=== PATIENT | female | born 1985 | race American Indian/Alaskan Native ===

== ENCOUNTER 2019-02-07 10:17 | Inpatient (IN) | payer OTHER ==
[2019-02-07] MEDS ORDERED: ZOFRAN IV PRN (15:24)
[2019-02-07] MEDS ORDERED: BRETHINE SUB-Q PRN (15:24)
[2019-02-07] MEDS ORDERED: BRETHINE IVP PRN (15:24)
[2019-02-07] MEDS ORDERED: PHENERGAN PO PRN (15:24)
[2019-02-07] MEDS ORDERED: NARCAN 0.4 MG/1 ML IV PRN (15:24)
[2019-02-07] MEDS ORDERED: XYLOCAINE 2% INFILTRATI ONE (15:24)
[2019-02-07] MEDS ORDERED: MINERAL OIL PO PRN (15:24)
--- NOTE | 2019-02-07 15:39 | History and Physical Report ---
History of Present Illness Date of examination: 02/07/19 Date of admission: 02/07/19 10:17 Chief complaint: Induction of Labor History of present illness: 33 yo AA Fe , MARCELA 02/26/2019 (LMP), 37w 2d, presents for induction of labor. Pt initiated late care with [facility] [employer] [facility] at 21 weeks 4 days. Co- managed with [facility] d/t Late care, MO (BMI 50.3), CHTN (Labetalol 200mg BID, ASA 81mg QD, BL 24 hr urine protein 485mg. Repeat 01/30/19 400. EKG-wnl). labs: B positive, Rubella non-immune, VDRL non-reactive, HBsAg negative, HIV negative, GC-negative, Chl negative, Trichomoniasis negative, panorama low risk. Past History Past Medical History: no pertinent history Past Surgical History: no surgical history [employer]ER History: trichomonas (07/2017). denies: abnormal PAP smear, chlamydia, gonorrhea, hepatitis B, hepatitis C, herpes, HIV, syphilis Family/Genetic History: diabetes, heart disease, hypertension Social history: no significant social history, single, lives with family, full code. denies: smoking, alcohol abuse, prescription drug abuse, IV drug use - Obstetrical History Expected Date of Delivery: 02/26/19 Actual Gestation: 37 Week(s) 2 Day(s) : 2 Para: 1 Hx # Term Pregnancies: 1 Number of Pregnancies: 0 Spontaneous Abortions: 0 Induced : 0 Number of Living Children: 1 #1 Gender: Female year: Method of Delivery: Vaginal Complications: none Medications and Allergies Allergies Allergy/AdvReac Type Severity Reaction Status Date / Time No Known Allergies Allergy Unverified 11/02/18 17:58 Active Meds: Active Medications Ephedrine Sulfate (Ephedrine Sulfate) 10 mg IV Q2M PRN PRN Reason: Hypotension Oxytocin/Sodium Chloride (Pitocin/Ns 20 Unit/1000ml Drip) 20 units in 1,000 mls @ 125 mls/hr IV DIRECT MELYSSA Mineral Oil (Mineral Oil) 30 ml PO QHS PRN PRN Reason: Constipation Review of Systems Eyes: normal appearance Cardiovascular: no chest pain, no shortness of breath Respiratory: no shortness of breath Breasts: normal Gastrointestinal: no abdominal pain, no nausea, no vomiting, no diarrhea, no constipation Genitourinary: normal appearance, no vaginal bleeding, no vaginal discharge, no leakage of fluid, no genital sores, no contractions Integumentary: no rash, no sores, no lesions - Vital Signs Vital signs: Vital Signs Pulse BP 131 H 131/77 02/07/19 10:49 02/07/19 10:49 Temp Pulse Resp BP Pulse Ox 98.5 F 101 H 18 140/82 94 02/07/19 11:14 02/07/19 15:25 02/07/19 11:14 02/07/19 14:41 02/07/19 15:25 - Physical Exam Breasts: Positive: normal Cardiovascular: Regular rate, Normal S1, Normal S2, No murmurs Lungs: Positive: Clear to auscultation, Normal air movement Abdomen: Positive: normal appearance, soft, normal bowel sounds. Negative: distention Genitourinary (Female): Positive: normal external genitalia, normal perenium Vulva: both: normal Vagina: Positive: normal moisture Uterus: Positive: enlarged (Gravid) Anus/Rectum: Positive: normal perianal skin Extremities: Positive: normal Deep Tendon Reflex Grade: Normal +2 - Obstetrical FHR: category 1 Uterine Contraction Monitor Mode: External Cervical Dilatation: 2 Cervical Effacement Percentage: 70 station: -2 Uterine Contraction Pattern: Absent Uterine Tone Measurement Phase: Resting Uterine Contraction Intensity: Mild Results Result Diagrams: 02/07/19 13:00 02/07/19 13:00 All other labs normal. Assessment and Plan A: IUP at 37w2d Morbid Obesity CHTN; labetalol 200mg BID Category 1 tracing GBS negative P: Admit to L&D; Routine labor orders PIH labs Pitocin Augmentation May have IV p ain med/epidural PRN Anticipate
[2019-02-07 15:49] LABS: Hematocrit 35.2 % (30.3-42.9); Hemoglobin 11.8 gm/dl (10.1-14.3); Mean Corpuscular HGB Conc 34 % (30-34); Mean Corpuscular Volume 82 fl (79-97); Platelet Count 300 K/mm3 (140-440); Red Blood Count 4.31 M/mm3 (3.65-5.03); Red Cell Distribution Width 16.4 % (13.2-15.2)
[2019-02-07 16:00] LABS: Alanine Aminotransferase 41 units/L (7-56); Albumin 3.2 g/dL (3.9-5); BUN/Creatinine Ratio 15; Blood Urea Nitrogen 9 mg/dL (7-17); Calcium 9.7 mg/dL (8.4-10.2); Hemolysis Index 50
[2019-02-07 16:01] LABS: Alanine Aminotransferase 43 units/L (7-56); Uric Acid 4.8 mg/dL (3.5-7.6)
[2019-02-07] MEDS: LACTATED RINGERS 1,000 ML IV SCH (16:12)
[2019-02-07] MEDS ORDERED: PITOCin/NS 30 UNIT/500ML 30 UNITS/500 ML BAG IV SCH (17:00)
[2019-02-07] MEDS: NORMODYNE PO SCH (21:58)
[2019-02-08] MEDS: LACTATED RINGERS 1,000 ML IV SCH (07:51)
--- NOTE | 2019-02-08 10:08 | Progress Note ---
Assessment and Plan - Patient Problems (1) Encounter for induction of labor Current Visit: Yes Status: Acute Plan to address problem: Continue routine L & D orders AROM - clear fluids, tolerated well Continue Pitocin titration as tolerated Pain meds as desired Anticipate (2) Morbid obesity with body mass index (BMI) of 50.0 to 59.9 in adult Current Visit: Yes Status: Acute (3) Chronic hypertension complicating or reason for care during Current Visit: Yes Status: Acute Plan to address problem: Monitor B/P q hr per policy Notify provider for B/P's > 160/110 Subjective - Subjective Date of service: 02/08/19 Principal diagnosis: IOL secondary to CHTN and MO Interval history: See admission H & P Patient reports: vaginal bleeding, movement normal, contractions, no loss of fluid Objective - Vital Signs Vital Signs: Vital Signs - 12hr 02/07/19 02/07/19 02/08/19 23:24 23:26 01:54 Temperature 98.6 F Pulse Rate 75 80 Respiratory Rate Blood Pressure 170/80 156/84 Blood Pressure [Left] O2 Sat by Pulse Oximetry 02/08/19 02/08/19 02/08/19 02:55 03:03 03:23 Temperature 98.6 F Pulse Rate 82 68 Respiratory 20 Rate Blood Pressure 115/56 138/67 Blood Pressure [Left] O2 Sat by Pulse Oximetry 02/08/19 02/08/19 02/08/19 05:19 05:20 05:25 Temperature Pulse Rate 88 73 Respiratory Rate Blood Pressure Blood Pressure [Left] O2 Sat by Pulse 81 L 97 98 Oximetry 02/08/19 02/08/19 02/08/19 05:30 05:35 05:36 Temperature Pulse Rate 73 96 H 94 H Respiratory Rate Blood Pressure Blood Pressure [Left] O2 Sat by Pulse 95 95 93 Oximetry 02/08/19 02/08/19 02/08/19 05:40 05:45 05:50 Temperature Pulse Rate 73 92 H 71 Respiratory Rate Blood Pressure Blood Pressure [Left] O2 Sat by Pulse 99 100 98 Oximetry 02/08/19 02/08/19 02/08/19 05:53 05:54 05:55 Temperature Pulse Rate 72 72 79 Respiratory Rate Blood Pressure 159/93 Blood Pressure [Left] O2 Sat by Pulse 85 98 Oximetry 02/08/19 02/08/19 02/08/19 06:00 06:05 06:10 Temperature Pulse Rate 86 76 76 Respiratory Rate Blood Pressure Blood Pressure [Left] O2 Sat by Pulse 99 100 98 Oximetry 02/08/19 02/08/19 02/08/19 06:15 06:20 06:24 Temperature Pulse Rate 81 92 H 71 Respiratory Rate Blood Pressure 135/75 142/78 Blood Pressure [Left] O2 Sat by Pulse 97 95 85 Oximetry 02/08/19 02/08/19 02/08/19 06:25 06:30 06:35 Temperature Pulse Rate 77 86 80 Respiratory Rate Blood Pressure Blood Pressure [Left] O2 Sat by Pulse 96 98 99 Oximetry 02/08/19 02/08/19 02/08/19 06:40 06:45 06:50 Temperature Pulse Rate 74 70 68 Respiratory Rate Blood Pressure Blood Pressure [Left] O2 Sat by Pulse 98 99 99 Oximetry 02/08/19 02/08/19 02/08/19 06:53 06:55 07:00 Temperature Pulse Rate 74 68 70 Respiratory Rate Blood Pressure 134/73 Blood Pressure [Left] O2 Sat by Pulse 92 97 97 Oximetry 02/08/19 02/08/19 02/08/19 07:05 07:10 07:11 Temperature Pulse Rate 81 89 89 Respiratory Rate Blood Pressure Blood Pressure [Left] O2 Sat by Pulse 97 95 93 Oximetry 02/08/19 02/08/19 02/08/19 07:15 07:19 07:20 Temperature Pulse Rate 70 77 67 Respiratory Rate Blood Pressure Blood Pressure [Left] O2 Sat by Pulse 96 94 96 Oximetry 02/08/19 02/08/19 02/08/19 07:23 07:25 07:30 Temperature Pulse Rate 69 65 68 Respiratory Rate Blood Pressure 128/76 Blood Pressure [Left] O2 Sat by Pulse 97 97 Oximetry 02/08/19 02/08/19 02/08/19 07:35 07:56 08:01 Temperature 96.1 F L Pulse Rate 70 98 H 74 Respiratory 18 Rate Blood Pressure 134/76 Blood Pressure 134/76 [Left] O2 Sat by Pulse 97 98 98 Oximetry 02/08/19 02/08/19 02/08/19 08:06 08:11 08:16 Temperature Pulse Rate 90 77 83 Respiratory Rate Blood Pressure Blood Pressure [Left] O2 Sat by Pulse 96 98 98 Oximetry 0802/08/19 02/08/19 08:21 08:23 08:26 Temperature Pulse Rate 75 66 70 Respiratory Rate Blood Pressure 142/82 Blood Pressure [Left] O2 Sat by Pulse 98 98 Oximetry 02/08/19 02/08/19 02/08/19 08:31 08:36 08:41 Temperature Pulse Rate 78 85 66 Respiratory Rate Blood Pressure Blood Pressure [Left] O2 Sat by Pulse 98 98 98 Oximetry 02/08/19 02/08/19 02/08/19 08:46 08:51 08:53 Temperature Pulse Rate 70 74 91 H Respiratory Rate Blood Pressure 154/92 Blood Pressure [Left] O2 Sat by Pulse 97 96 Oximetry 02/08/19 02/08/19 02/08/19 08:56 09:01 09:06 Temperature Pulse Rate 65 64 69 Respiratory Rate Blood Pressure Blood Pressure [Left] O2 Sat by Pulse 97 96 96 Oximetry 02/08/19 02/08/19 02/08/19 09:07 09:11 09:14 Temperature Pulse Rate 73 66 76 Respiratory Rate Blood Pressure Blood Pressure [Left] O2 Sat by Pulse 94 97 90 Oximetry 02/08/19 02/08/19 02/08/19 09:16 09:21 09:24 Temperature Pulse Rate 71 81 87 Respiratory Rate Blood Pressure 154/89 Blood Pressure [Left] O2 Sat by Pulse 93 97 Oximetry 02/08/19 02/08/19 02/08/19 09:26 09:31 09:36 Temperature Pulse Rate 66 65 79 Respiratory Rate Blood Pressure Blood Pressure [Left] O2 Sat by Pulse 97 98 97 Oximetry 02/08/19 02/08/19 02/08/19 09:41 09:46 09:51 Temperature Pulse Rate 74 67 71 Respiratory Rate Blood Pressure Blood Pressure [Left] O2 Sat by Pulse 99 99 98 Oximetry 02/08/19 02/08/19 02/08/19 09:53 09:56 10:01 Temperature Pulse Rate 81 79 79 Respiratory Rate Blood Pressure 127/83 Blood Pressure [Left] O2 Sat by Pulse 97 98 Oximetry - Exam Breasts: deferred Cardiovascular: Regular rate Lungs: Normal air movement Abdomen: Present: other (gravid and obese) Uterus: Present: other (S=D) FHR: category 1 Uterine Contraction Monitor Mode: External Cervical Dilatation: 3 (Pitocin @ 20mu/min) Cervical Effacement Percentage: 70 station: -1 Uterine Contraction Frequency (min): 3-4 Uterine Contraction Pattern: Irregular Uterine Tone Measurement Phase: Resting Uterine Contraction Intensity: Moderate Extremities: normal Deep Tendon Reflex Grade: Normal +2 - Labs Labs: Abnormal Labs 02/07/19 02/07/19 02/07/19 13:00 13:00 13:00 MCH 27 L RDW 16.4 H Sodium 135 L Carbon Dioxide 19 L Creatinine 0.6 L 0.6 L Alkaline Phosphatase 190 H Lactate Dehydrogenase 251 H Albumin 3.2 L Laboratory Results - last 24 hr 02/07/19 02/07/19 02/07/19 13:00 13:00 13:00 WBC 10.2 RBC 4.31 Hgb 11.8 Hct 35.2 MCV 82 MCH 27 L MCHC 34 RDW 16.4 H Plt Count 300 Sodium Potassium Chloride Carbon Dioxide Anion Gap BUN Creatinine 0.6 L Estimated GFR > 60 BUN/Creatinine Ratio Glucose Uric Acid 4.8 Calcium Total Bilirubin AST 32 ALT 43 Alkaline Phosphatase Lactate Dehydrogenase 251 H Total Protein Albumin Albumin/Globulin Ratio Blood Type B POSITIVE Antibody Screen Negative 02/07/19 13:00 WBC RBC Hgb Hct MCV MCH MCHC RDW Plt Count Sodium 135 L Potassium 4.3 Chloride 103.3 Carbon Dioxide 19 L Anion Gap 17 BUN 9 Creatinine 0.6 L Estimated GFR > 60 BUN/Creatinine Ratio 15 Glucose 83 Uric Acid Calcium 9.7 Total Bilirubin 0.30 AST 32 ALT 41 Alkaline Phosphatase 190 H Lactate Dehydrogenase Total Protein 7.3 Albumin 3.2 L Albumin/Globulin Ratio 0.8 Blood Type Antibody Screen
[2019-02-08] MEDS: NORMODYNE PO SCH (10:33)
[2019-02-08] MEDS ORDERED: STADOL IV PRN (11:00)
[2019-02-08] MEDS ORDERED: MINERAL OIL PO PRN (11:00)
[2019-02-08] MEDS ORDERED: XYLOCAINE 2% INFILTRATI NR (11:00)
[2019-02-08] MEDS ORDERED: LACTATED RINGERS 1,000 ML IV SCH (11:00)
[2019-02-08] MEDS ORDERED: SUBLIMAZE IV ONE (11:30)
[2019-02-08] MEDS ORDERED: NARCAN 2 MG/2 ML IV PRN (11:38)
--- NOTE | 2019-02-08 11:53 | Anesthesia Consultation ---
Anesthesia Consult and Med Hx Date of service: 02/08/19 - Airway Anesthetic Teeth Evaluation: Good ROM Head & Neck: Adequate Mental/Hyoid Distance: Adequate Mallampati Class: Class II Intubation Access Assessment: Good - Pulmonary Exam CTA: Yes - Cardiac Exam Cardiac Exam: RRR - Pre-Operative Health Status ASA Pre-Surgery Classification: ASA2, Emergency Proposed Anesthetic Plan: Epidural - Pulmonary Hx Asthma: No - Cardiovascular System Hx Hypertension: No - Central Nervous System Hx Seizures: No Hx Psychiatric Problems: No - Endocrine Hx Renal Disease: No Hx Hypothyroidism: No Hx Hyperthyroidism: No - Hematic Hx Anemia: No Hx Sickle Cell Disease: No - Other Systems Hx Alcohol Use: No
[2019-02-08] MEDS ORDERED: SUBLIMAZE IV PRN (12:00)
[2019-02-08] MEDS ORDERED: fentaNYL-BUPIV 2 MCG/ML-0.125% 200 MCG/100 ML BAG EPIDURAL SCH (12:00)
[2019-02-08] MEDS: PITOCin/NS 20 UNIT/1000ML DRIP 20 UNITS/1,000 ML BAG IV SCH ×2 (12:59→14:00)
[2019-02-08] MEDS ORDERED: LANSINOH TP PRN (13:09)
[2019-02-08] MEDS ORDERED: PHENERGAN PO PRN (13:09)
[2019-02-08] MEDS ORDERED: DULCOLAX PR PRN (13:09)
[2019-02-08] MEDS ORDERED: TUCKS PAD TP PRN (13:09)
[2019-02-08] MEDS ORDERED: MILK OF MAGNESIA PO PRN (13:09)
[2019-02-08] MEDS ORDERED: ZOFRAN IV PRN (13:09)
[2019-02-08] MEDS ORDERED: BENADRYL PO PRN (13:09)
--- NOTE | 2019-02-08 13:19 | Procedure Note ---
OB Delivery Note - Delivery Date of Delivery: 02/08/19 (1249) Surgeon: VICTOR M HARTLEY (DEVONM) Estimated blood loss: <100cc - Vaginal Delivery presentation: vertex Delivery position: OA (FIRODALIZA) Intrapartum events: none Delivery induction: oxytocin Delivery augmentation: rupture of membranes Delivery monitor: external uterine, internal FHT Route of delivery: Delivery placenta: spontaneous (1259) Delivery cord: 3 umbilical vessels Episiotomy: none Delivery laceration: none Anesthesia: none Delivery comments: of viable female , cried shortly after delivery with minimal stimulation. Placed directly to maternal abdomen. Cord double clamped and cut after cessation of pulsation. Placenta delivered spontaneously, merlos, disposed per hospital delivery. Perineum intact. Fundus firm @ U, hemostasis maintained. Mother and baby stable, safe and bonding well. - Infant A at 1 minute: 8 at 5 minutes: 9 Infant Gender: Female (Weight: 3397 gms (7lbs 8 ozs) 19 inches)
[2019-02-08] MEDS ORDERED: SODIUM CHLORIDE FLUSH SYRINGE 10 ML IV NR (14:00)
[2019-02-08] MEDS: IBUPROFEN PO SCH ×2 (17:46→23:31)
[2019-02-08] MEDS: PERCOCET 5/325 PO PRN ×2 (17:46→23:32)
[2019-02-09 01:20] LABS: Hematocrit 30.7 % (30.3-42.9); Hemoglobin 10.3 gm/dl (10.1-14.3)
[2019-02-09] MEDS: PERCOCET 5/325 PO PRN ×2 (05:34→22:50)
[2019-02-09] MEDS: IBUPROFEN PO SCH ×4 (05:34→18:26)
[2019-02-09] MEDS: FEOSOL PO SCH (11:14)
[2019-02-09] MEDS: PRENATAL VITAMIN PO SCH (11:15)
--- NOTE | 2019-02-09 11:46 | Progress Note ---
Assessment and Plan A: PPD#1 s/p CHTN; Labetalol 200mg BID, VSS Stable P: Continue PP orders Anticipate D?C in 24-48 hrs Subjective - Subjective Date of service: 02/09/19 Principal diagnosis: PPD#1 s/p Interval history: 33 yo AA Fe , MARCELA 02/26/2019 (LMP), 37w 2d, presents for induction of labor. Pt initiated late care with [facility] [employer] at 21 weeks 4 days. Co- managed with [facility] d/t Late care, MO (BMI 50.3), CHTN (Labetalol 200mg BID, ASA 81mg QD, BL 24 hr urine protein 485mg. Repeat 01/30/19 400. EKG-wnl). labs: B positive, Rubella non-immune, VDRL non-reactive, HBsAg negative, HIV negative, GC-negative, Chl negative, Trichomoniasis negative, panorama low risk. Patient reports: appetite normal, voiding normally, pain well controlled, f latus, ambulating normally, no bowel movement : doing well, nursing well Objective - Vital Signs Latest vital signs: Vital Signs Temp Pulse Resp BP BP Pulse Ox 02/09/19 08:30 98.5 F 82 20 138/70 02/09/19 00:43 98.7 F 85 18 137/78 97 02/08/19 21:19 98.2 F 82 20 158/92 98 02/08/19 15:38 98.3 F 66 18 154/78 99 02/08/19 14:22 91 H 140/74 02/08/19 14:07 65 137/71 02/08/19 13:52 68 136/66 02/08/19 13:37 75 145/71 02/08/19 13:16 93 H 147/65 02/08/19 13:15 52 L 83 L 02/08/19 13:08 85 02/08/19 13:02 84 78 L 02/08/19 12:52 87 83 L 02/08/19 12:46 81 L 02/08/19 12:41 112 H 59 L 02/08/19 12:40 83 L 02/08/19 12:35 72 92 02/08/19 12:30 97 H 93 02/08/19 12:25 69 94 02/08/19 12:23 53 L 86 02/08/19 12:20 66 86 02/08/19 12:18 72 88 02/08/19 12:15 76 98 02/08/19 12:12 76 94 02/08/19 12:10 80 99 02/08/19 12:06 75 92 02/08/19 12:05 72 94 02/08/19 12:02 68 183/82 02/08/19 12:00 72 96 02/08/19 11:59 78 91 02/08/19 11:55 70 93 02/08/19 11:53 75 94 02/08/19 11:50 72 92 02/08/19 11:48 88 94 02/08/19 11:45 70 93 Intake and Output 02/08/19 02/09/19 02/09/19 23:59 07:59 15:59 Intake Total 480 120 Output Total 800 600 Balance -320 -480 Intake: Oral 120 120 Intake, Free Water 360 Output: Urine 800 600 Void 800 600 Other: Total, Intake Amount 120 120 Total, Output Amount 200 600 # Voids Void 1 - Exam Breasts: Present: normal, Cardiovascular: Present: Regular rate, Normal S1, Normal S2, No murmurs Lungs: Present: Clear to auscultation, Normal air movement Abdomen: Present: normal appearance, soft, normal bowel sounds. Absent: distention Vulva: both: normal Uterus: Present: firm, fundal height at umbilicus Extremities: Present: normal Deep Tendon Reflex Grade: Normal +2
--- NOTE | 2019-02-09 11:49 | Discharge Summary ---
Providers - Providers Date of Admission: 02/07/19 10:17 Date of discharge: 02/10/19 Attending physician: REANNA COPELAND MD Primary care physician: REANNA COPELAND MD Hospitalization Reason for admission: induction of labor, IUP at term Delivery: Procedure details: See H&P and delivery note Episiotomy: none Laceration: none Other procedures: none complications: none Discharge diagnosis: IUP at term delivered baby: female Condition at discharge: Good Disposition: DC-01 TO HOME OR SELFCARE Plan - Discharge Medications Prescriptions: NIFEdipine [Nifedipine ER] 30 mg PO BID #60 tab.er.[id number] - Provider Discharge Summary Activity: routine, no sex for 6 weeks, no heavy lifting 4 weeks, no strenuous exercise Diet: routine Instructions: routine Additional instructions: [] Smoking cessation referral if applicable(refer to patient education folder for contact #) [] Refer to [facility]'s [facility] Booklet Call your doctor immediately for: * Fever > 100.5 * Heavy vaginal bleeding ( >1 pad per hour) * Severe persistent headache * Shortness of breath * Reddened, hot, painful area to leg or breast * Drainage or odor from incision. * Keep incision clean and dry at all times and follow doctor's instructions regarding bathing/showering - Follow up plan Follow up: REANNA COPELAND MD [Primary Care Provider] - 6 Weeks
[2019-02-10] MEDS: IBUPROFEN PO SCH ×2 (00:06→15:00)
[2019-02-10] MEDS: FEOSOL PO SCH (10:25)
[2019-02-10] MEDS: PRENATAL VITAMIN PO SCH (10:25)
[2019-02-10 15:56] VITALS: BP 136/72
== END 2019-02-10 15:25 | disposition home or self-care (01) | DRG 774 ==
LOC: LD 10:17 → OB 02-08 15:59
PROVIDERS: ADMIT Obstetrics & Gynecology; ATTEND Obstetrics & Gynecology
PROC: 10E0XZZ Delivery of Products of Conception, External Approach (ICD-10-PCS; principal; 2019-02-08)
PROC: 3E033VJ Introduction of Other Hormone into Peripheral Vein, Percutaneous Approach (ICD-10-PCS; 2019-02-08)
PROC: 10907ZC Drainage of Amniotic Fluid, Therapeutic from Products of Conception, Via Natural or Artificial Opening (ICD-10-PCS; 2019-02-08)
DX: O10.92 Unspecified pre-existing hypertension complicating childbirth (principal); E66.01 Morbid (severe) obesity due to excess calories; O99.214 Obesity complicating childbirth; Z83.3 Family history of diabetes mellitus; Z37.0 Single live birth; Z3A.37 37 weeks gestation of pregnancy; Z82.49 Family history of ischemic heart disease and other diseases of the circulatory system
CPT/HCPCS: 36415; 80053; 82565; 83615; 84450; 84460; 84550; 85014; 85018; 85027; 86592; 86850; 86900; 86901; G0378; J0595; J2590; J7120